=== PATIENT | female | born 1965 | race Asian ===

== ENCOUNTER 2021-07-20 08:00 | Outpatient (CLI) | payer OTHER ==
--- NOTE | 2021-07-20 18:54 | XRAY Report ---
PROCEDURE: Calcaneus RT INDICATIONS: INTRACTABLE RIGHT HEEL PAIN TECHNIQUE: Two views of the calcaneus were acquired. COMPARISON: None FINDINGS: Bones: No fractures or dislocations. No suspicious bony lesions. Tiny plantar calcaneal enthesophyt e is seen. Soft tissues: No suspicious calcifications. Achilles tendon appears normal. IMPRESSION: No calcaneal fracture or dislocation. No gross soft tissue abnormality. Tiny plantar calcaneal enthes ophyte. Reviewed by: Claudy Lyons MD on 07/20/2021 6:52 PM PST Approved by: Claudy Lyons MD on 07/20/2021 6:52 PM PST Station ID: [id number]
== END 2021-07-20 23:59 | disposition home or self-care (01) ==
LOC: DI.S 08:00
PROVIDERS: ATTEND Physician Assistant Medical
DX: M77.31 Calcaneal spur, right foot (principal); M79.671 Pain in right foot